=== PATIENT | male | born 1985 | race Caucasian/White ===

== ENCOUNTER 2018-07-19 20:38 | Emergency (ER) | payer OTHER ==
[~2018-07-19] VITALS: Ht 180.3 cm; Wt 97.0 kg
[~2018-07-19 20:38] MED LIST: KEFLEX500 M1 PO
[2018-07-19] MEDS ORDERED: BACTRIM DS1 TAB PO (21:17)
[2018-07-19] MEDS ORDERED: TRAMADOL HCL50 MG PO (21:17)
[2018-07-19 21:26] VITALS: BP 151/97
== END 2018-07-19 21:26 | disposition home or self-care (01) | DRG 603 ==
LOC: ED 20:38
PROC: 0H98XZZ Drainage of Buttock Skin, External Approach (ICD-10-PCS; principal; 2018-07-19)
DX: L02.31 Cutaneous abscess of buttock (principal)

== ENCOUNTER 2023-03-29 14:18 | Emergency (ER) | payer OTHER ==
[~2023-03-29] VITALS: Ht 180.3 cm; Wt 98.0 kg
[~2023-03-29 14:18] MED LIST changes: +BACTRIM DS1 TAB PO; +TRAMADOL HCL50 MG PO
[2023-03-29] MEDS ORDERED: MOTRIN800 MG PO (16:40)
[2023-03-29] MEDS ORDERED: CYCLOBENZAPRINE10 MG PO (16:40)
[2023-03-29] MEDS ORDERED: BACTRIM DS1 TAB PO (16:40)
[2023-03-29 16:45] VITALS: BP 138/75
== END 2023-03-29 17:20 | disposition home or self-care (01) | DRG 605 ==
LOC: ED 14:18
PROC: 0HQBXZZ Repair Right Upper Arm Skin, External Approach (ICD-10-PCS; principal; 2023-03-29)
DX: S51.811A Laceration without foreign body of right forearm, initial encounter (principal); S41.111A Laceration without foreign body of right upper arm, initial encounter; V54.5XXA Driver of pick-up truck or van injured in collision with heavy transport vehicle or bus in traffic accident, initial encounter; M25.561 Pain in right knee